=== PATIENT | male | born 1990 | race Caucasian/White ===

== ENCOUNTER 2016-06-07 12:35 | Emergency (ER) | payer OTHER ==
[~2016-06-07] VITALS: Ht 193 cm; Wt 88.5 kg
[2016-06-07 13:41] LABS: Basophils # (auto) 0 uL; Basophils % (auto) 0.3 % (0.0-2.0); Eosinophils # (auto) 0 uL; Hematocrit 48.5 % (41.0-53.0); Lymphocytes # (auto) 0.7 uL; Lymphocytes % (auto) 11.2 % (10.0-50.0); Mean Corpuscular Hemoglobin 29.8 pg (28.0-32.0); Mean Corpuscular Volume 90.5 fL (80.0-100.0); Monocytes # (auto) 0.2 uL; Monocytes % (auto) 3.1 % (0.0-12.0); Neutrophils # (auto) 5.4 uL; Neutrophils % (auto) 85.4 % (37.0-80.0); Platelet Count (auto) 264 10^3/uL (140-450); Red Cell Distribution Width 12.5 % (11.6-16.0); White Blood Cell 6.3 10^3/uL (4.4-10.8)
[2016-06-07 13:58] LABS: Albumin 4.7 g/dL (3.4-5.0); BUN/Creatinine Ratio 13.3; Bilirubin, Total 0.9 mg/dL (0.2-1.0); Calcium 9.7 mg/dL (8.5-10.1); Magnesium 2.5 mg/dL (1.6-2.6); Potassium 4.5 mmol/L (3.5-5.1)
[2016-06-07 17:01] VITALS: BP 127/61
== END 2016-06-07 18:38 | disposition home or self-care (01) ==
LOC: ER 12:35
DX: H81.10 Benign paroxysmal vertigo, unspecified ear (principal); Z74.01 Bed confinement status
CPT/HCPCS: 36415; 70450; 80053; 83735; 84484; 85025; 93005